=== PATIENT | female | born 1940 ===

== ENCOUNTER 2020-01-21 17:14 | Outpatient (CLI) | payer MEDICARE, SELFPAY ==
[2020-01-21 17:53] LABS: Estmated Average Glucose 120; Hemoglobin A1C 5.8 % (4.0-6.0)
[2020-01-21 17:59] LABS: Anion Gap 12.9 (5-19); Blood Urea Nitrogen 13 mg/dL (8-23); Calcium 10.4 mg/dL (8.5-10.5); Carbon Dioxide 34 mmol/L (22-29); Chloride 97 mmol/L (98-107); Glucose 89 mg/dL (65-115); Osmolality Calculated 286 mOsm/kg (285-295); Potassium 3.9 mmol/L (3.5-5.1); Sodium 140 mmol/L (136-145); Thyroid Stimulating Hormone 0.86 uIU/mL (0.27-4.20)
== END 2020-01-21 17:15 | disposition home or self-care (01) ==
LOC: LAB 17:17
PROVIDERS: Family Provider Internal Medicine; PCP Family Medicine; Visit Provider Internal Medicine
DX: E03.9 Hypothyroidism, unspecified (principal)
CPT/HCPCS: 80048; 83036; 84443

== ENCOUNTER 2020-02-21 13:13 | Emergency (ER) | payer MEDICARE, SELFPAY ==
[2020-02-21] VITALS (7 sets, daily range): BP systolic 107–158; BP diastolic 46–67; PULSE 78–103; RESP 16–28; TEMP 37–37.2; O2SAT 94–100; BMI 16.7
--- NOTE | 2020-02-21 13:20 | ECG_ITS ---
[facility] Test Date: 2020-02-21 Pat Name: Galina Evans Department: Room: Gender: Female Caustic Room Attendant: : 1940 Requested By: Charlee Polo Order Number: [id number] Fiorella MD: Michelle Sharif M.D. Measurements Intervals [place] Rate: 94 P: 89 MI: 154 QRS: 90 QRSD: 107 T: 73 QT: 341 QTc: 427 Interpretive Statements SINUS RHYTHM Compared to ECG 04/25/2019 12:16:52 Myocardial infarct finding no longer present Electronically Signed On 02-21-2020 17:42:13 CDT by Michelle Sharif M.D. [email or web address] regional [email or web address] medical specialty hospital [email or web address]/[id number]
--- NOTE | 2020-02-21 13:20 | XRR_ITS ---
PROCEDURE INFORMATION: Exam: XR Chest, 1 View Exam date and time: 02/21/2020 2:03 PM Age: 79 years old Clinical indication: Shortness of breath; Additional info: SOB TECHNIQUE: Imaging protocol: XR of the chest Views: 1 view. COMPARISON: CR Chest 1 [place] [id number] 04/25/2019 12:56 PM FINDINGS: Lungs: There is severe hyperinflation lungs compatible with COPD with fibrosis. There is new nodular density left upper lobe measuring about 2.2 x 1.5 cm in size. There is increasing density in the medial right lung base. This may reflect atelectasis or infiltrate. The pulmonary vascularity is within normal limits. There are scattered calcified granulomas. Pleural space: Unremarkable. No pleural effusion. No pneumothorax. Heart/Mediastinum: Unremarkable. No cardiomegaly. Bones/joints: Osteopenia and diffuse moderate degenerative changes are stable. Soft tissues: Ovoid soft tissue nodule is also projected over the right lung base and lateral to the ribs and is probably along the chest wall. XR/XR chest 1V portable [id number] IMPRESSION: Severe emphysematous changes with fibrosis. New nodular density left upper lobe and increasing density right lower lobe as above. A chest CT would be most helpful for further evaluation.
[2020-02-21 13:57] LABS: ABG PCO2 58.8 mmHg (35-45); ABG PH Result 7.42 (7.35-7.45); Arterial Blood Gas Hematocrit 31.2 % (37-47); Base Excess ABG 11.9 mmol/L (-2.0-2.0); Blood Gas Allen Test Pos; Blood Gas Operator Identificat CAK; Blood Gas Sample Site Radial, left; Blood Gas Sample Type Arterial; HCO3 ABG 38.2 mmol/L (22-26); Oxygen Device NC
[2020-02-21 14:13] LABS: Basophils # 0.1 10^3/uL (0.0-0.1); Basophils % 0.8 %; Eosinophils # 0.1 10^3/uL (0.0-0.8); Eosinophils % 0.8 %; Hematocrit 35.6 % (37.0-47.0); Hemoglobin 10.3 g/dL (11.5-15.3); Lymphocytes # 0.8 10^3/uL (0.8-4.8); Lymphocytes % 10.6 %; Mean Corpuscular HGB Conc 28.9 g/dL (30.0-36.0); Mean Corpuscular Hemoglobin 25.4 pg (28.0-34.0); Mean Corpuscular Volume 87.7 fL (81-99); Mean Platelet Volume 9.1 fL (7.4-10.4); Monocytes # 0.5 10^3/uL (0.2-0.9); Monocytes % 5.8 %; Neutrophils # 6.51 10^3/uL (1.8-7.7); Neutrophils % 81.7 %; Nucleated Red Blood Cells % 0 %; Platelet Count 324 10^3/cmm (130-400); Red Blood Count 4.06 10^6/uL (4.1-5.3); Red Cell Distribution Width 13.3 % (12.1-15.1)
[2020-02-21 14:25] LABS: Fibrinogen 640 mg/dL (174-498)
[2020-02-21] MEDS: magnesium sulfate premix 2 GM/50 ML PIGGYBACK IV (14:26)
[2020-02-21 14:28] LABS: D Dimer 1.96 ug/mIFEU (0-0.59)
[2020-02-21 14:33] LABS: Influenza A by IFA Negative (Negative); Influenza B by IFA Negative (Negative)
[2020-02-21 14:35] LABS: Lactic Sepsis W/Reflex 0.7 mmol/L (0.5-2.2)
[2020-02-21 14:37] LABS: Troponin(5th) Baseline 15 ng/L (0-10)
[2020-02-21 14:42] LABS: NT Pro B Type Natriuretic Pept 471 pg/mL (0-450); Procalcitonin 0.05 ng/mL (0-0.5)
[2020-02-21 14:48] LABS: SARS Covid-2 Antigen Negative (Negative)
[2020-02-21 14:54] LABS: Alanine Aminotransferase 8 U/L (0-33); Albumin Level 3.8 g/dL (3.5-5.2); Alkaline Phosphatase 77 IU/L (35-105); Anion Gap 12.9 (5-19); Aspartate Amino Transferase 17 U/L (0-32); Blood Urea Nitrogen 9 mg/dL (8-23); C Reactive Protein 25.7 mg/L (0.0-4.9); Calcium 10.1 mg/dL (8.5-10.5); Carbon Dioxide 34 mmol/L (22-29); Chloride 95 mmol/L (98-107); Ferritin 149 ng/mL (15-150); Globulin 3.4 g/dL (1.3-4.6); Glucose 94 mg/dL (65-115); Lactate Dehydrogenase 157 U/L (135-214); Osmolality Calculated 284 mOsm/kg (285-295); Potassium 3.9 mmol/L (3.5-5.1); Sodium 138 mmol/L (136-145); Total Bilirubin 0.4 mg/dL (0.15-1.2); Total Protein 7.2 g/dL (6.6-8.7)
--- NOTE | 2020-02-21 15:10 | CTR_ITS ---
PROCEDURE INFORMATION: Exam: CT Angiography Chest With Contrast Exam date and time: 02/21/2020 3:24 PM Age: 79 years old Clinical indication: Fever and shortness of breath; Additional info: SOB, abnormal cxr TECHNIQUE: Imaging protocol: Computed tomographic angiography of the chest with intravenous contrast. 3D rendering (Not supervised by radiologist): MIP and/or 3D reconstructed images were created by the technologist. Radiation optimization: All CT scans at this facility use at least one of these dose optimization techniques: automated exposure control; mA and/or kV adjustment per patient size (includes targeted exams where dose is matched to clinical indication); or iterative reconstruction. Contrast material: OMNIPAQUE 350; Contrast volume: 75 ml; Contrast route: INTRAVENOUS (IV); COMPARISON: CTA Chest-Pulmonary Emb [id number] 04/23/2019 3:48 PM RADIATION DOSE METRICS: Total DLP (mGy-cm): 440.16 FINDINGS: Pulmonary arteries: There is no pulmonary embolus. Tiny ill-defined area of hypodensity in the medial right lower lobe pulmonary artery branch image 367 is noted on the axial images but is not reproducible on the coronal or sagittal images and appears to be some subtle motion artifact. Aorta: Unremarkable. No aortic aneurysm. No aortic dissection. Lungs: There are severe emphysematous changes. There is a larger soft tissue nodule right lung apex image 11 measuring 2.0 x 1.0 cm in size were previously there is just some linear scarring. Linear scar left upper lobe with peripheral pleural thickening or nodularity measuring 7 mm in thickness is unchanged image 11. There is a new area of airspace opacity with central air bronchograms in the lingula measuring 3.7 by 1.6 cm in size image 29. Bronchiectasis with mucous plugging and airspace consolidation right lower lobe is increasing. Dense consolidation versus mass medial right lower lobe measuring 3.8 by 2.7 cm in size is identified today where previously it measured 4.2 by 1.7 cm. Mild bibasilar linear atelectasis versus scarring is noted. There is unchanged bilateral apical scarring. Pleural space: Unremarkable. No pneumothorax. No pleural effusion. Heart: There is a small pericardial effusion. Lymph nodes: Unremarkable. No enlarged lymph nodes. Bones/joints: Unremarkable. No acute fracture. Soft tissues: Unremarkable. Other findings: Calcified granulomas are noted. CT/CT angio chest PE protcl [id number] IMPRESSION: 1. There is no pulmonary embolus. Incidental note is made of subtle streaky hypodensity in 1 right lower lobe pulmonary artery branch on 2 axial images compatible with motion artifact on coronal images. 2. Severe emphysematous changes with fibrosis. There is new airspace opacity with air bronchograms in the lingula and larger airspace infiltrate in the right lower lobe. 3. New nodule right upper lobe and larger masslike density medial right lower lobe that may reflect lobar consolidation or an enlarging mass.Highly suspicious nodule(s). Consider PET/CT, or tissue sampling.(Reference: Danielle) 4. Bronchiectasis and increased mucous plugging in the right lower lobe is noted. REFERENCES: Danielle H, et al. Guidelines for Management of Incidental Pulmonary Nodules Detected on CT Images: From the Fleischner Society 2017. Radiology. 2017;284(1):228-243. Radiation Dose CTDIVOL = (mGy): DLP = 440.16 (mGy-cm)
--- NOTE | 2020-02-21 15:20 | ECG_ITS ---
[facility] Test Date: 2020-02-21 Pat Name: Galina Evans Department: Room: Gender: Female Net Manager: : 1940 Requested By: Charlee Polo Order Number: [id number] Fiorella MD: Michelle Sharif M.D. Measurements Intervals [place] Rate: 85 P: 86 HI: 158 QRS: 90 QRSD: 95 T: 80 QT: 363 QTc: 434 Interpretive Statements SINUS RHYTHM Compared to ECG 02/21/2020 13:44:27 No significant changes Electronically Signed On 02-21-2020 18:02:41 CDT by Michelle Sharif M.D. [email or web address]/OM/[id number]
[2020-02-21] MEDS: iohexol 350 mg/mL 100 mL Btl IV (15:47)
--- NOTE | 2020-02-21 15:49 | W.ED.COVID ---
HPI - COVID General: Chief Complaint: COVID symptoms Stated Complaint: RESP DISTRESS Time Seen by Provider: 02/21/20 13:18 Triage information: Has fever, cough or shortness of breath. No known COVID + exposure last 14 days History of Present Illness: HPI Narrative: This patient is an 79-year-old female who presents today with shortness of breath. She has a history of severe COPD and is on 4 L of oxygen at home. She reports worsening of her symptoms just this morning. She used her albuterol and DuoNeb nebulizers at home with some relief but not complete. She was transported by EMS. She was given IV Solu-Medrol. She denies fever cough. She denies COVID exposure. MD complaint: other (COPD, concerned for COVID) Prior covid testing: no COVID 19 common symptoms: positive cough, productive cough and dyspnea; negative fever(s), chills, fatigue, headache(s), nausea or vomiting COVID 19 other sytmptoms: positive requiring more oxygen and respiratory distress; negative chest pain Onset (ago): day(s) (Today) Severity: severe Pertinent comorbid conditions: COPD/respiratory disease Treatment prior to arrival: breathing treatments COVID Results: SARS-CoV-2 Antigen (Rapid) Negative (Negative) 02/21/20 14:00 02/21/20 SARS-CoV-2 RNA (RT-PCR) Pending 02/21/20 15:25 02/21/20 Review of Systems General: Reports: 10 or more systems reviewed and unremarkable except in HPI and below Const: Denies: fever(s), chills, fatigue or malaise Eyes: Denies: change in vision ENMT: Denies: odynophagia Card: Denies: chest pain or swelling of feet/ankles Resp: Reports: dyspnea and productive cough GI: Denies: abdominal pain, nausea or vomiting : Denies: flank pain or difficulty voiding Musc: Denies: neck pain or back pain Skin/Breast: Denies: rash Neuro: Denies: headache(s), numbness in extremities or weakness in extremities Vince/Lymph: Denies: easy bruising or easy bleeding Physical Exam Const: COMMON NORMALS: patient oriented x3 and alert GENERAL APPEARANCE: cooperative NUTRITIONAL APPEARANCE: underweight HENMT: HEAD & SCALP: normal to inspection FACE & SINUS: normal facial exam Eye: GENERAL EYE: appearance normal, both eyes and all related structures Neck/C-Spine: COMMON NORMALS: supple, no meningeal signs and no JVD Chest: COMMONS NORMALS: normal inspection of the chest Resp: EFFORT & INSPECTION: Yes tachypneic, Yes respiratory distress, Yes labored and Yes uses accessory muscles AUSCULTATION: diminished lung sounds (More so on the right) Cardio: COMMON NORMALS: no JVD, regular rate, regular rhythm and No murmurs present (Cardio) RATE: regular rate RHYTHM: regular rhythm GI: COMMON NORMALS: Normal to inspection, nondistended, normoactive bowel sounds present, Soft to palpation and non-tender INSPECTION: Yes normal to inspection AUSCULTATION: Yes normoactive bowel sounds PALPATION: Yes Soft to palpation Back/Pelvis: COMMON NORMALS: thoracic and lumbar spine normal to inspection Extremity: COMMON NORMALS: normal to inspection Neuro: COMMON NORMALS: patient oriented x3, moves all extremities, no focal motor deficits and no sensory deficits noted SENSORIUM/ORIENTATION: Yes alert MENINGEAL SIGNS: Yes no meningeal signs Psych: COMMON NORMALS: mental status grossly normal, cooperative and normal affect Skin: COMMON NORMALS: no rashes or lesions noted and turgor normal GENERAL SKIN EXAM: no rashes or lesions noted and turgor normal Course ED course: This patient was in quite a bit of respiratory distress initially. Her sats were good however on her normal 4 L of oxygen. She was not moving much air. She was given some nebulizer treatments and some steroids by EMS. She improved and at the time of discharge was resting quite comfortably. She said her breathing felt a lot better. Her lungs were more clear and she was moving more air. CT was done because of some concerning findings on chest x-ray. She appears to have a infiltrate in the right base and also had a nodule that will require follow-up as there is concern for malignancy. I discussed this with the patient as well as her daughter who came to pick her up. I put her on antibiotics and prednisone and she will follow-up with Dr. Sierra for further evaluation. Her rapid antigen COVID test was negative here in a quest send out test is also pending. Vital Signs: Vital signs: Vital Signs Temperature 98.9 F 02/21/20 19:21 Pulse Rate 84 02/21/20 19:21 Respiratory Rate 20 H 02/21/20 19:21 Blood Pressure 110/54 02/21/20 19:21 Pulse Oximetry 94 02/21/20 19:21 MDM - COVID Lab Data Result diagrams: 02/21/20 13:50 02/21/20 13:50 Labs: Lab Results 02/21/20 02/21/20 02/21/20 Range/Units 13:46 13:50 13:50 WBC (4.0-10.0) 10^3/uL RBC (4.1-5.3) 10^6/uL Hgb (11.5-15.3) g/dL Hct (37.0-47.0) % MCV (81-99) fL MCH (28.0-34.0) pg MCHC (30.0-36.0) g/dL RDW (12.1-15.1) % Plt Count (130-400) 10^3/cmm MPV (7.4-10.4) fL Neut % (Auto) % Lymph % (Auto) % [place] % (Auto) % Eos % (Auto) % Baso % (Auto) % Neut # (Auto) (1.8-7.7) 10^3/uL Lymph # (Auto) (0.8-4.8) 10^3/uL [place] # (Auto) (0.2-0.9) 10^3/uL Eos # (Auto) (0.0-0.8) 10^3/uL Baso # (Auto) (0.0-0.1) 10^3/uL Nucleated RBC % (auto) % Nucleated RBCs # /100WBC PT 13.50 (12.1-14.9) SECONDS INR 1.00 (0.8-1.2) Fibrinogen 640 H (174-498) mg/dL D-Dimer 1.96 H (0-0.59) ug/mIFEU Specimen Type Arterial Sample Site Radial, left ABG pH 7.42 (7.35-7.45) ABG pCO2 58.8 H (35-45) mmHg ABG pO2 127.0 H (80.0-100.0) mmHg ABG HCO3 38.2 H (22-26) mmol/L ABG Base Excess 11.9 H (-2.0-2.0) mmol/L Rico Test Pos Hematocrit 31.2 L (37-47) % O2 Delivery Device Nc O2 Liters/Min 4.0 % FiO2 36.0 % Cut Plug Packer ID Cak Sodium 138 (136-145) mmol/L Potassium 3.9 (3.5-5.1) mmol/L Chloride 95 L (98-107) mmol/L Carbon Dioxide 34 H (22-29) mmol/L Anion Gap 12.9 (5-19) BUN 9 (8-23) mg/dL Creatinine 0.6 (0.5-0.9) mg/dL GFR Calculation Not Reportable Glucose 94 (65-115) mg/dL Calculated Osmolality 284 L (285-295) mOsm/kg Lactic Acid (0.5-2.2) mmol/L Calcium 10.1 (8.5-10.5) mg/dL Magnesium 2.0 (1.7-2.3) mg/dL Ferritin 149 (15-150) ng/mL Total Bilirubin 0.4 (0.15-1.2) mg/dL AST 17 (0-32) U/L ALT 8 (0-33) U/L Alkaline Phosphatase 77 (35-105) IU/L Lactate Dehydrogenase 157 (135-214) U/L Troponin T Baseline (0-10) ng/L Troponin T 120 Minute (0-10) ng/L Delta Troponin T (0-10) ABS# C-Reactive Protein 25.7 H (0.0-4.9) mg/L NT-Pro-B Natriuret Pep 471 H (0-450) pg/mL Total Protein 7.2 (6.6-8.7) g/dL Albumin 3.8 (3.5-5.2) g/dL Globulin 3.4 (1.3-4.6) g/dL Procalcitonin 0.05 (0-0.5) ng/mL Influenza Type A Ag (Negative) Influenza Type B Ag (Negative) SARS-CoV-2 Ag (Rapid) (Negative) 02/21/20 02/21/20 02/21/20 Range/Units 13:50 13:50 13:50 WBC 8.0 (4.0-10.0) 10^3/uL RBC 4.06 L (4.1-5.3) 10^6/uL Hgb 10.3 L (11.5-15.3) g/dL Hct 35.6 L (37.0-47.0) % MCV 87.7 (81-99) fL MCH 25.4 L (28.0-34.0) pg MCHC 28.9 L (30.0-36.0) g/dL RDW 13.3 (12.1-15.1) % Plt Count 324 (130-400) 10^3/cmm MPV 9.1 (7.4-10.4) fL Neut % (Auto) 81.7 % Lymph % (Auto) 10.6 % [place] % (Auto) 5.8 % Eos % (Auto) 0.8 % Baso % (Auto) 0.8 % Neut # (Auto) 6.51 (1.8-7.7) 10^3/uL Lymph # (Auto) 0.8 (0.8-4.8) 10^3/uL [place] # (Auto) 0.5 (0.2-0.9) 10^3/uL Eos # (Auto) 0.1 (0.0-0.8) 10^3/uL Baso # (Auto) 0.1 (0.0-0.1) 10^3/uL Nucleated RBC % (auto) 0 % Nucleated RBCs # 0.0 /100WBC PT (12.1-14.9) SECONDS INR (0.8-1.2) Fibrinogen (174-498) mg/dL D-Dimer (0-0.59) ug/mIFEU Specimen Type Sample Site ABG pH (7.35-7.45) ABG pCO2 (35-45) mmHg ABG pO2 (80.0-100.0) mmHg ABG HCO3 (22-26) mmol/L ABG Base Excess (-2.0-2.0) mmol/L Rico Test Hematocrit (37-47) % O2 Delivery Device O2 Liters/Min % FiO2 % Cut Plug Packer ID Sodium (136-145) mmol/L Potassium (3.5-5.1) mmol/L Chloride (98-107) mmol/L Carbon Dioxide (22-29) mmol/L Anion Gap (5-19) BUN (8-23) mg/dL Creatinine (0.5-0.9) mg/dL GFR Calculation Glucose (65-115) mg/dL Calculated Osmolality (285-295) mOsm/kg Lactic Acid 0.7 (0.5-2.2) mmol/L Calcium (8.5-10.5) mg/dL Magnesium (1.7-2.3) mg/dL Ferritin (15-150) ng/mL Total Bilirubin (0.15-1.2) mg/dL AST (0-32) U/L ALT (0-33) U/L Alkaline Phosphatase (35-105) IU/L Lactate Dehydrogenase (135-214) U/L Troponin T Baseline 15 H (0-10) ng/L Troponin T 120 Minute (0-10) ng/L Delta Troponin T (0-10) ABS# C-Reactive Protein (0.0-4.9) mg/L NT-Pro-B Natriuret Pep (0-450) pg/mL Total Protein (6.6-8.7) g/dL Albumin (3.5-5.2) g/dL Globulin (1.3-4.6) g/dL Procalcitonin (0-0.5) ng/mL Influenza Type A Ag (Negative) Influenza Type B Ag (Negative) SARS-CoV-2 Ag (Rapid) (Negative) 02/21/20 02/21/20 02/21/20 Range/Units 14:00 14:00 15:30 WBC (4.0-10.0) 10^3/uL RBC (4.1-5.3) 10^6/uL Hgb (11.5-15.3) g/dL Hct (37.0-47.0) % MCV (81-99) fL MCH (28.0-34.0) pg MCHC (30.0-36.0) g/dL RDW (12.1-15.1) % Plt Count (130-400) 10^3/cmm MPV (7.4-10.4) fL Neut % (Auto) % Lymph % (Auto) % [place] % (Auto) % Eos % (Auto) % Baso % (Auto) % Neut # (Auto) (1.8-7.7) 10^3/uL Lymph # (Auto) (0.8-4.8) 10^3/uL [place] # (Auto) (0.2-0.9) 10^3/uL Eos # (Auto) (0.0-0.8) 10^3/uL Baso # (Auto) (0.0-0.1) 10^3/uL Nucleated RBC % (auto) % Nucleated RBCs # /100WBC PT (12.1-14.9) SECONDS INR (0.8-1.2) Fibrinogen (174-498) mg/dL D-Dimer (0-0.59) ug/mIFEU Specimen Type Sample Site ABG pH (7.35-7.45) ABG pCO2 (35-45) mmHg ABG pO2 (80.0-100.0) mmHg ABG HCO3 (22-26) mmol/L ABG Base Excess (-2.0-2.0) mmol/L Rico Test Hematocrit (37-47) % O2 Delivery Device O2 Liters/Min % FiO2 % Cut Plug Packer ID Sodium (136-145) mmol/L Potassium (3.5-5.1) mmol/L Chloride (98-107) mmol/L Carbon Dioxide (22-29) mmol/L Anion Gap (5-19) BUN (8-23) mg/dL Creatinine (0.5-0.9) mg/dL GFR Calculation Glucose (65-115) mg/dL Calculated Osmolality (285-295) mOsm/kg Lactic Acid (0.5-2.2) mmol/L Calcium (8.5-10.5) mg/dL Magnesium (1.7-2.3) mg/dL Ferritin (15-150) ng/mL Total Bilirubin (0.15-1.2) mg/dL AST (0-32) U/L ALT (0-33) U/L Alkaline Phosphatase (35-105) IU/L Lactate Dehydrogenase (135-214) U/L Troponin T Baseline (0-10) ng/L Troponin T 120 Minute 15.39 H (0-10) ng/L Delta Troponin T 0.39 (0-10) ABS# C-Reactive Protein (0.0-4.9) mg/L NT-Pro-B Natriuret Pep (0-450) pg/mL Total Protein (6.6-8.7) g/dL Albumin (3.5-5.2) g/dL Globulin (1.3-4.6) g/dL Procalcitonin (0-0.5) ng/mL Influenza Type A Ag Negative (Negative) Influenza Type B Ag Negative (Negative) SARS-CoV-2 Ag (Rapid) Negative (Negative) COVID Results: SARS-CoV-2 Antigen (Rapid) Negative (Negative) 02/21/20 14:00 02/21/20 SARS-CoV-2 RNA (RT-PCR) Pending 02/21/20 15:25 02/21/20 Discharge Plan Discharge Patient Disposition: Home Clinical Impression: Acute exacerbation of chronic obstructive pulmonary disease, Pulmonary nodule seen on imaging study Pneumonia Qualifiers: Pneumonia type: due to unspecified organism Laterality: left Lung location: lower lobe of lung Qualified Code(s): J18.9 - Pneumonia, unspecified organism Condition: Stable Prescriptions: New amoxicillin-pot clavulanate 875-125 mg tablet 1 tab PO BID Qty: 20 RF: 0 prednisone 10 mg tablet 20 mg PO DAILY Qty: 10 RF: 0 Discharge Orders: Discharge Order (Routine); Ordered 02/21/20 Ordered By: Charlee Sotomayor Referrals: Jerry Sierra DO [Primary Care Provider] - Discharge Diet: Usual diet Discharge Activity: Resume usual activity Patient Instructions: Pulmonary Nodules (ED), Pneumonia (ED) Activity Restrictions/Additional Instructions: Return to emergency department if you are having more difficulty breathing or decide that she would like to be admitted for further treatment. The COVID test in the ER was negative but a second, confirmatory test has been sent and should be back in the next few days. A pulmonary nodule was seen on your CAT scan of the chest and this needs to be discussed with your primary care doctor. Discharge Date/Time: 02/21/20 19:24 Coding Level of Care Code ED Manager Quantitative for Tomasa Fwd Exam Comprehensive
[2020-02-21 16:19] LABS: Troponin 5 2HR 15.39 ng/L (0-10); Troponin 5 2HR Delta 0.39 ABS# (0-10)
[2020-02-22 12:46] LABS: Quest SARS-CoV-2 RNA NOT DETECTED (NOT DETECTED)
--- NOTE | 2020-02-22 17:44 | PC.NURSE ---
Pt called and notified of negative COVID result.
[2023-02-19 10:29] LABS: Blood Gas Drawn By CAK
== END 2020-02-21 19:24 | disposition home or self-care (01) ==
PROVIDERS: Emergency Provider Emergency Medicine; PCP Internal Medicine
DX: J44.0 Chronic obstructive pulmonary disease with (acute) lower respiratory infection (principal); J18.9 Pneumonia, unspecified organism; J44.1 Chronic obstructive pulmonary disease with (acute) exacerbation; R91.1 Solitary pulmonary nodule; Z99.81 Dependence on supplemental oxygen
CPT/HCPCS: 12345; 36415; 36600; 71045; 71275; 80053; 82728; 82803; 83605; 83615; 83735; 83880; 84145; 84484; 85025; 85378; 85384; 85610; 86140; 87040; 87077; 87205; 87426; 87635; 87804; 93005; 96365; 99284; J3475; Q9967